=== PATIENT | male | born 1950 | race Caucasian/White ===

== ENCOUNTER 2019-07-04 09:16 | Outpatient (CLI) | payer OTHER, SELFPAY ==
--- NOTE | 2019-07-04 09:30 | USCV_ITS ---
Geo Malik Age: 69 Gender: M : 1950 Exam Date: 07/04/2019 09:28 Ordering Phys: Maranda Rocha MD ([email or web address]) Technologist: Zaira Vieira Exam Location: [facility] [place] Indication: STENOSIS Risk Factors: Previous Vascular Surgery: Right Brachial BP: / Left Brachial BP: / Right Left Velocity (cm/s) Spectral Plaque Velocity (cm/s) Spectral Plaque Syst/Diast Broadening Syst/Diast Broadening 58.40/ 17.60 Prox CCA 72.90 / 18.90 71.70/ 25.40 Mid CCA 67.80 / 17.20 68.40/ 18.70 Distal CCA 76.90 / 18.70 79.40/ 26.50 Prox ICA 57.20 / 13.80 79.80/ 23.20 Mid ICA 88.00 / 23.20 63.50/ 22.30 Distal ICA 92.60 / 30.60 99.20 ECA 223.50 1.11 ICA/CCA 1.37 Antegrade Vertebral Antegrade 40.30/ 11.10 cm/s 50.00/ 12.00 cm/s Tri Subclavian Tri 60.00 208.9 0 FINDINGS Comparison: none available. Diffuse bilateral scattered calcified plaque and intimal thickening throughout the common carotid arteries and extending through the bifurcation. CONCLUSIONS Bilateral ICA stenosis less than 50%. Heterogenous plaque in the bifurcations, bilateral. Dr. Elis Natarajan DO (Electronically Signed) Final Date: 04 Jul 2019 13:38 S
== END 2019-07-04 09:17 | disposition home or self-care (01) ==
PROVIDERS: PCP Emergency Medicine Emergency Medical Services; Visit Provider Internal Medicine Cardiovascular Disease
DX: I65.23 Occlusion and stenosis of bilateral carotid arteries (principal)
CPT/HCPCS: 93880

== ENCOUNTER 2020-09-23 11:20 | Outpatient (CLI) | payer OTHER, SELFPAY | END 2020-09-23 11:21 | disposition home or self-care (01) | LOC: LAB 11-11 13:16 | PROVIDERS: PCP Emergency Medicine Emergency Medical Services; Visit Provider Internal Medicine Cardiovascular Disease | DX: I10 Essential (primary) hypertension (principal); E87.2 Acidosis; I25.10 Atherosclerotic heart disease of native coronary artery without angina pectoris | CPT/HCPCS: 80053; 80061; 83036; 85025 ==

== ENCOUNTER 2020-12-04 13:04 | Outpatient (CLI) | payer OTHER, SELFPAY ==
--- NOTE | 2020-12-04 13:30 | USCV_ITS ---
Geo Malik Age: 70 Gender: M : 1950 Exam Date: 12/04/2020 13:41 Ordering Phys: Maranda Rocha MD ([email or web address]) Technologist: Amarilys Edwards [place] [facility] [place]ication: EVAL FOR CAROTID STENOSIS Risk Factors: Previous Vascular Surgery: Right Brachial BP: / Left Brachial BP: / Right Left Velocity (cm/s) Spectral Plaque Velocity (cm/s) Spectral Plaque Syst/Diast Broadening Syst/Diast Broadening 109.20/14.30 Prox CCA 78.30 / 15.40 87.10/ 19.80 Mid CCA 91.50 / 18.70 92.60/ 23.20 Distal CCA 108.10/ 23.20 78.80/ 16.30 Prox ICA 189.00/ 34.20 80.50/ 26.50 Mid ICA 148.80/ 42.80 70.90/ 23.10 Distal ICA 81.60 / 14.10 115.80 ECA 221.00 0.74 ICA/CCA 1.75 Antegrade Vertebral Antegrade 50.40/ 12.00 cm/s 34.20/ 9.30 cm/s Tri Subclavian Tri 177.2 222.9 0 0 FINDINGS Comparison:. 07/04/19. Diffuse bilateral scattered calcified plaque and intimal thickening throughout the common carotid arteries and extending through the bifurcation. Moderate elevation of left ICA velocity. Bilateral antegrade vertebral arteries. CONCLUSIONS Left ICA stenosis 50-69%. Mild progression of stenosis since the prior exam. Right ICA stenosis < 50%. Dr. Elis Natarajan DO (Electronically Signed) Final Date: 04 December 2020 14:46 S
== END 2020-12-04 13:05 | disposition home or self-care (01) ==
LOC: RAD 13:08
PROVIDERS: PCP Emergency Medicine Emergency Medical Services; Visit Provider Internal Medicine Cardiovascular Disease
DX: I65.23 Occlusion and stenosis of bilateral carotid arteries (principal)
CPT/HCPCS: 80053; 80061; 83036; 85025; 93880

== ENCOUNTER 2021-01-19 06:57 | Outpatient (CLI) | payer OTHER, SELFPAY ==
--- NOTE | 2021-01-19 07:07 | USCV_ITS ---
Geo Malik Age: 70 Gender: M : 1950 Exam Date: 01/19/2021 07:22 Ordering Phys: Charissa Lechuga MD Technologist: ASHUTOSH [place]am [place] [facility] [place] Indication: smoking history. QUIT 30 YRS AGO. NO PRIORS HISTORY: Diameter (cm) AP x Transverse x Length Velocity (cm/s) Waveform Prox Aorta: 3.18 x 3.30 x 39.70 Mid Aorta: 2.33 x 2.84 x 49.60 Distal Aorta: 4.06 x 4.12 x 9.10 75.20 Right Iliac Prox: 1.38 x 2.20 x 95.90 Left Iliac Prox: 1.64 x 1.93 x 113.20 Triphasic Stent Prox Landing x x Aneurysmal Sac Max x x Lt Lat Sac Dim Rt Lat Sac Dim Stent Dist Landing x x Right Iliac Stent x x Left Iliac Stent x x Right Renal Art Left Renal Art FINDINGS: Fusiform dilatation of the infrarenal abdominal aorta measuring 4.06 x 4.12 x 9.1 cm Mild to moderate diffuse plaques in the abdominal aorta CONCLUSIONS 1. Very infrarenal aortic aneurysm measuring 4.06 x 4.12 cm in diameter and 9.1 cm in length. 2. Mild to moderate diffuse plaques in the abdominal aorta. 3. Dilated proximal common iliac arteries bilaterally measuring 1.38 x 2.2 on the right side and 1.64 x 1.93 on the left side Dr Meenakshi Carlton MD [facility] (Electronically Signed) Final Date: 21 January 2021 00:22 S
== END 2021-01-19 06:58 | disposition home or self-care (01) ==
LOC: RAD 06:59
PROVIDERS: PCP Emergency Medicine Emergency Medical Services; Visit Provider Family Medicine
DX: Z87.891 Personal history of nicotine dependence (principal); I71.4 Abdominal aortic aneurysm, without rupture
CPT/HCPCS: 93978